=== PATIENT | female | born 1965 ===

== ENCOUNTER 2016-12-20 16:36 | Emergency (ER) | payer MEDICAID ==
[2016-12-20 16:43] VITALS: RESP 18; O2SAT 100
[2016-12-20] MEDS ORDERED: Aspirin 325 mg EC Tablets PO STA (17:48)
[2016-12-20] MEDS ORDERED: Sodium Chloride 0.9% 1,000 ML IV ONE (17:48)
[2016-12-20 18:17] LABS: BASO # 0.1 K/uL (0.0-0.2); BASO % 1.4 % (0.0-2.0); EOS # 0.2 K/uL (0.0-0.7); EOS % 3.1 % (0.0-4.0); HEMATOCRIT 41.4 % (34.0-47.0); LYMPH # 1.8 K/uL (1.0-4.3); LYMPH % 24.3 % (20.0-40.0); MEAN CELL VOLUME 82.6 fL (81.0-99.0); MEAN CORPUSCULAR HEMOGLOBIN 26.9 pg (27.0-31.0); MEAN CORPUSCULAR HGB CONC 32.6 g/dL (33.0-37.0); MEAN PLATELET VOLUME 10.5 fL (7.2-11.7); MONO # 0.6 K/uL (0.0-0.8); NRBC % 0.1 % (0.0-2.0); RED CELL DISTRIBUTION WIDTH 14.5 % (11.5-14.5)
[2016-12-20 18:20] LABS: WHITE BLOOD COUNT 7.5 K/uL (4.8-10.8)
[2016-12-20] MEDS ORDERED: Sodium Chloride 0.9% 1,000 ML ONE (18:28)
[2016-12-20] MEDS ORDERED: Aspirin 325 mg EC Tablets PO ONE (18:32)
[2016-12-20 18:35] LABS: RBC URINE 9 /hpf (0-3); URINE BILIRUBIN NEGATIVE (NEGATIVE); URINE BLOOD 1+ (NEGATIVE); URINE COLOR Yellow (YELLOW); URINE GLUCOSE (UA) NORMAL (Normal); URINE KETONE NEGATIVE (NEGATIVE); URINE LEUKOCYTE ESTERASE NEG Leu/uL (Negative); URINE PROTEIN NEGATIVE (NEGATIVE); URINE UROBILINOGEN NORMAL mg/dL (0.2-1.0); WBC URINE 1 /hpf (0-5)
[2016-12-20 18:52] LABS: CHLORIDE 100 mmol/L (98-107)
[2016-12-20 18:53] LABS: SODIUM 139 mmol/L (132-148)
[2016-12-20 18:55] LABS: AST/SGOT 22 U/L (14-36); BILIRUBIN,TOTAL 0.5 mg/dL (0.2-1.3); CARBON DIOXIDE 23 mmol/L (22-30); GFR AFRICAN-AMERICAN > 60
[2016-12-20 18:56] LABS: ALB/GLOB RATIO 1.3 (1.0-2.1); ALKALINE PHOSPHATASE 67 U/L (38-126); ALT/SGPT 7 U/L (9-52); BLOOD UREA NITROGEN 17 mg/dL (7-17); CALCIUM 9.2 mg/dl (8.6-10.4); GLUCOSE,RANDOM 76 mg/dL (65-105); TOTAL PROTEIN 7.7 g/dL (6.3-8.3)
--- NOTE | 2016-12-20 20:24 | C.PDOC ---
History Of Present Illness 51 year old female presents to the ED with complaints of cramping epigastric discomfort for the past 1 day. Patient has a history of constipation and was seen in April 2016 for the same complaints. Denies vomiting, diarrhea, fever, chills, or any other complaints at this time. Time Seen by Provider: 12/20/16 17:43 Chief Complaint (Nursing): Chest Pain History Per: Patient History/Exam Limitations: no limitations Onset/Duration Of Symptoms: Days Current Symptoms Are (Timing): Still Present Severity: Mild Location Of Pain/Discomfort: Epigastric Quality Of Discomfort: Cramping Associated Symptoms: denies: Fever, Chills, Vomiting, Diarrhea Past Medical History Reviewed: Historical Data, Nursing Documentation, Vital Signs Vital Signs: Last Vital Signs Temp 98.6 F 12/20/16 20:47 Pulse 68 12/20/16 20:47 Resp 18 12/20/16 20:47 BP 160/92 H 12/20/16 20:47 Pulse Ox 100 12/20/16 20:47 - Medical History PMH: Depression (sometimes), Gastritis, HTN, Hypercholesterolemia, Migraine Family History: States: Unknown Family Hx - Social History Hx Tobacco Use: No Hx Alcohol Use: No Hx Substance Use: No - Immunization History Hx Tetanus Toxoid Vaccination: Yes Hx Influenza Vaccination: No Hx Pneumococcal Vaccination: No Review Of Systems Except As Marked, All Systems Reviewed And Found Negative. Constitutional: Negative for: Fever, Chills Gastrointestinal: Positive for: Abdominal Pain. Negative for: Nausea, Vomiting , Diarrhea Physical Exam - Physical Exam Appears: Non-toxic, No Acute Distress Skin: Normal Color, Warm, Dry Head: Atraumatic, Normacephalic Eye(s): bilateral: Normal Inspection Oral Mucosa: Moist Chest: Symmetrical, No Deformity Cardiovascular: Rhythm Regular Respiratory: Normal Breath Sounds, No Accessory Muscle Use Gastrointestinal/Abdominal: Soft, No Tenderness, No Distention, No Guarding, No Rebound, Other (+Obese abdomen) Extremity: Normal ROM Neurological/Psych: Oriented x3, Normal Speech, Normal Cognition ED Course And Treatment - Laboratory Results Result Diagrams: 12/20/16 18:11 12/20/16 18:11 Lab Interpretation: Normal (trop neg.) Urine POC: Negative ECG: Interpreted By Me ECG Rhythm: Sinus Rhythm ECG Interpretation: Normal Rate From EC O2 Sat by Pulse Oximetry: 100 (Room air) Pulse Ox Interpretation: Normal - Radiology CXR: Interpreted by Me CXR Interpretation: Yes: No Acute Disease - Other Rad abd x 2 X-Ray: Interpreted by Me (+FOS) Progress Note: Obstructive series, EKG, Blood work, and Urinalysis ordered and reviewed. Patient treated with Aspirin, Toradol, and IV fluids. Medical Decision Making Medical Decision Making: recurrent constipation, no GB/cardiac issues today Again diet and exercise educated. Disposition Doctor Will See Patient In The: Office Counseled Patient/Family Regarding: Studies Performed, Diagnosis - Disposition Referrals: [facility] at [facility] [Outside] Disposition: HOME/ ROUTINE Disposition Time: 20:24 Condition: GOOD Additional Instructions: emily un purgante (Citrato de Magnesio) y re-evalua mckeon molestia del abdomen despues de usar el stef 2-3 veces Sigue un esuavesante de los heces diario Come mas verduras crudas Emily mas agua.l Sigue en la Clinica fiona necessario. Instructions: Constipation (ED) Print Language: BHUTANESE - Clinical Impression Clinical Impression: Colicky LUQ abdominal pain - Scribe Statement The provider has reviewed the documentation as recorded by the Scribe Kolby Mohr. Provider Attestation: All medical record entries made by the Scribe were at my direction and personally dictated by me. I have reviewed the chart and agree that the record accurately reflects my personal performance of the history, physical exam, medical decision making, and the department course for this patient. I have also personally directed, reviewed, and agree with the discharge instructions and disposition.
[2016-12-20 20:48] VITALS: BP 160/92; PULSE 68; TEMP 98.6
--- NOTE | 2016-12-21 10:57 | RAD ---
PROCEDURE: Radiographs of the chest and abdomen (obstructive series) HISTORY: epigastric pain COMPARISON: No prior. TECHNIQUE: AP radiograph of the chest, with upright and supine radiographs of the abdomen. FINDINGS: CHEST: Lungs: Prominent lung markings. No focal infiltrate or consolidation. Cardiovascular: Normal size heart. No pulmonary vascular congestion. Pleura: No pleural fluid. No pneumothorax. Other findings: None. ABDOMEN AND PELVIS: Bowel: [id number] constipation. Otherwise unremarkable bowel gas pattern. . No evidence of mechanical obstruction. Free air: None. Bones: Unremarkable. Other findings: None. IMPRESSION: [id number] constipation. No radiographic evidence of SBO. Slightly prominent lung markings. No evidence of subdiaphragmatic free air.
--- NOTE | 2016-12-21 16:54 | CARD ---
APPROVED REPORT EKG Measurement Heart [id number] [place] [id number] <Conclusion> Normal sinus rhythm Normal ECG
== END 2016-12-20 20:47 | disposition home or self-care (01) ==
LOC: C.ER 16:36
DX: R10.12 Left upper quadrant pain (principal)
CPT/HCPCS: 74022; 80053; 81001; 83880; 84484; 85025; 93005; 96361; 96374; 99285; J1885; J7040

== ENCOUNTER 2017-04-13 14:09 | Observation (INO) | payer MEDICAID ==
[2017-04-13] MEDS ORDERED: Aspirin 325 mg EC Tablets PO STA (14:49)
--- NOTE | 2017-04-13 14:52 | C.PDOC ---
History Of Present Illness 51 y/o female, with no significant past medical history, presents to emergency department via BLS with complaint of sudden onset mid-sternal chest discomfort, described as sharp, which eased up and then lingered, lasting about 2 hours. Patient states she began to feel short of breath and sweaty, causing concern, and prompting EMS call. Patient states she has never had similar symptoms in the past. She reports chest pain is now resolved, but now complains of headache. Denies family cardiac history or smoking. Otherwise, denies fever, chills, nausea, vomiting, or other associated symptoms. Time Seen by Provider: 04/13/17 14:22 Chief Complaint (Nursing): Chest Pain History Per: Patient History/Exam Limitations: no limitations Onset/Duration Of Symptoms: Hrs Current Symptoms Are (Timing): Gone Quality: "Pain" Associated Symptoms: Dyspnea, Diaphoresis Recent travel outside of the [place]: No Past Medical History Reviewed: Historical Data, Nursing Documentation, Vital Signs Vital Signs: Last Vital Signs Temp 98 F 04/13/17 14:12 Pulse 55 L 04/13/17 16:52 Resp 14 04/13/17 16:52 BP 148/67 04/13/17 16:52 Pulse Ox 100 04/13/17 16:52 - Medical History PMH: Depression (sometimes), Gastritis, HTN, Hypercholesterolemia, Migraine Family History: States: Unknown Family Hx - Social History Hx Tobacco Use: No Hx Alcohol Use: No Hx Substance Use: No - Immunization History Hx Tetanus Toxoid Vaccination: Yes Hx Influenza Vaccination: No Hx Pneumococcal Vaccination: No Review Of Systems Except As Marked, All Systems Reviewed And Found Negative. Constitutional: Positive for: Sweats. Negative for: Fever, Chills Cardiovascular: Positive for: Chest Pain. Negative for: Palpitations Respiratory: Positive for: Shortness of Breath. Negative for: Cough Gastrointestinal: Negative for: Nausea, Vomiting Skin: Negative for: Rash Neurological: Positive for: Headache. Negative for: Dizziness Physical Exam - Physical Exam Appears: Non-toxic, No Acute Distress Skin: Warm, Dry Head: Atraumatic, Normacephalic Oral Mucosa: Moist Chest: Symmetrical Cardiovascular: Rhythm Regular Respiratory: Normal Breath Sounds, No Rales, No Rhonchi, No Wheezing Gastrointestinal/Abdominal: Soft, No Tenderness, No Guarding, No Rebound Back: Normal Inspection Extremity: Normal ROM, Capillary Refill (< 2 sec. ) Neurological/Psych: Oriented x3, Normal Speech, Normal Cognition ED Course And Treatment - Laboratory Results Result Diagrams: 04/13/17 15:07 04/13/17 15:07 Lab Interpretation: No Acute Changes ECG: Interpreted By Me ECG Rhythm: Sinus Bradycardia, R BBB (incomplete) ECG Interpretation: No Acute Changes O2 Sat by Pulse Oximetry: 99 (RA) Pulse Ox Interpretation: Normal - Radiology CXR: Viewed By Me, Read By Radiologist CXR Interpretation: Yes: No Acute Disease Progress Note: EKG, CxR, bloodwork ordered. Reevaluation Time: 16:20 Reassessment Condition: Improved - Physician Consult Information Time Consulting Physician Contacted: 16:25 Physician Contacted: Diaz Vidales Outcome Of Conversation: Patient to be kept for cardiac observation. Disposition - Disposition Disposition: HOSPITALIZED Disposition Time: 16:26 Condition: STABLE - POA Present On Arrival: None - Clinical Impression Clinical Impression: Chest pain - Scribe Statement The provider has reviewed the documentation as recorded by the Teriibsilvestre Mahmood All medical record entries made by the Anita were at my direction and personally dictated by me. I have reviewed the chart and agree that the record accurately reflects my personal performance of the history, physical exam, medical decision making, and the department course for this patient. I have also personally directed, reviewed, and agree with the discharge instructions and disposition.
[2017-04-13 15:12] LABS: BASO # 0.1 K/uL (0.0-0.2); BASO % 1.1 % (0.0-2.0); EOS # 0.2 K/uL (0.0-0.7); EOS % 2.5 % (0.0-4.0); HEMATOCRIT 38.1 % (34.0-47.0); LYMPH # 1.7 K/uL (1.0-4.3); LYMPH % 27.1 % (20.0-40.0); MEAN CELL VOLUME 82.1 fL (81.0-99.0); MEAN CORPUSCULAR HEMOGLOBIN 26.2 pg (27.0-31.0); MEAN PLATELET VOLUME 10.6 fL (7.2-11.7); MONO # 0.5 K/uL (0.0-0.8); MONO % 7.2 % (0.0-10.0); NRBC % 0.1 % (0.0-2.0); RED CELL DISTRIBUTION WIDTH 13.3 % (11.5-14.5); WHITE BLOOD COUNT 6.3 K/uL (4.8-10.8)
[2017-04-13 15:21] LABS: CHLORIDE 101 mmol/L (98-107); POTASSIUM 4.2 mmol/L (3.6-5.2); SODIUM 139 mmol/L (132-148)
[2017-04-13 15:23] LABS: ALB/GLOB RATIO 1.1 (1.0-2.1); ALKALINE PHOSPHATASE 82 U/L (38-126); AST/SGOT 18 U/L (14-36); BILIRUBIN,TOTAL 0.7 mg/dL (0.2-1.3); CARBON DIOXIDE 26 mmol/L (22-30); GFR AFRICAN-AMERICAN > 60; TOTAL PROTEIN 6.8 g/dL (6.3-8.3)
[2017-04-13 15:24] LABS: ALT/SGPT 19 U/L (9-52); BLOOD UREA NITROGEN 11 mg/dL (7-17); CALCIUM 8.4 mg/dl (8.6-10.4); GLUCOSE,RANDOM 88 mg/dL (65-105)
--- NOTE | 2017-04-13 15:32 | RAD ---
HISTORY: chest pain COMPARISON: Obstructive series performed 12/20/16 TECHNIQUE: Chest, one view. FINDINGS: Examination limited by habitus. LUNGS: No focal consolidation. Please note that chest x-ray has limited sensitivity for the detection of pulmonary masses. PLEURA: No significant pleural effusion identified. No definite pneumothorax . CARDIOVASCULAR: Heart size appears within normal limits. Faint atherosclerotic calcifications of the aorta. OSSEOUS STRUCTURES: Degenerative changes of the spine. VISUALIZED UPPER ABDOMEN: Unremarkable. OTHER FINDINGS: None. IMPRESSION: No focal consolidation, significant pleural effusion, or definite pneumothorax identified.
--- NOTE | 2017-04-13 17:12 | CP.PCM.PN ---
Subjective - Date & Time of Evaluation Date of Evaluation: 04/13/17 Time of Evaluation: 16:45 - Subjective Subjective: PGY3 Medicine Note - Dr. Vidales's service: Patient seen and examined at bedside in ED. Patient is a 51 year old female with PMHx of hyperlipidemia, hypertension, migraines, gastritis and a stress ulcer. Patient denies having hypertension and hyperlipidemia but she has had it on prior ER visits. Patient is presenting for chest pain this morning. Patient says she was cooking and started feeling very hot around 11am. Then she got dizzy and began experiencing substernal, sudden, sharp chest pain. The pain did not radiate. It was associated with nausea, shortness of breath and diaphoresis. Patient says this is the first time she has ever had chest pain however she was admitted in 2014 for chest pain. Patient says the pain is gone now but it lasted for about 3 hours. Patient reports headache now associated with right neck pain. Patient has had headaches like this before. Patient says it started 3 hours ago. Patient also reports intermittent constipation. Patient denies fever, chills, cough, vomiting, diarrhea, dysuria. PMHx: as above: PSHx: C section Family Hx: patient says he brother suddenly at 11 years old from a heart problem Social Hx: quit smoking 3 years ago before which she smoked 5 cigarettes a day, denies ETOH, denies illicit drug use Allergies: NKDA Objective - Vital Signs/Intake and Output Vital Signs (last 24 hours): Temp Pulse Resp BP Pulse Ox 98 F 55 L 14 148/67 100 04/13/17 14:12 04/13/17 16:52 04/13/17 16:52 04/13/17 16:52 04/13/17 16:52 - Labs Labs: 04/13/17 15:07 04/13/17 15:07 - Constitutional Appears: Non-toxic, No Acute Distress - Head Exam Head Exam: NORMAL INSPECTION - Eye Exam Eye Exam: EOMI - ENT Exam ENT Exam: Mucous Membranes Moist - Respiratory Exam Respiratory Exam: Decreased Breath Sounds, Clear to Ausculation Bilateral, NORMAL BREATHING PATTERN. absent: Rales, Rhonchi, Wheezes - Cardiovascular Exam Cardiovascular Exam: REGULAR RHYTHM, +S1, +S2. absent: Gallop, Rubs, Murmur - GI/Abdominal Exam GI & Abdominal Exam: Soft, Normal Bowel Sounds. absent: Distended, Firm, Tenderness - Extremities Exam Extremities Exam: absent: Pedal Edema, Tenderness - Neurological Exam Neurological Exam: Alert, Awake, Oriented x3 - Psychiatric Exam Psychiatric exam: Normal Affect, Normal Mood - Skin Skin Exam: Normal Color, Warm Assessment and Plan - Assessment and Plan (Free Text) Assessment: Chest Pain KATINA negative x1 EKG - bradycardic at 52bpm with incomplete RBBB CXR - no consolidation, pleural effusion or definite pneumothorax (please see full report) F/U ROMIs with EKGs x2 at 21:30 and 4am F/U HgbA1C, TSH, Lipid panel ASA 81mg PO daily Crestor 10mg PO HS Nitro SL Q5M Headache Tylenol 650mg PO Q6H PRN headache HTN Started lisinopril 2.5mg PO daily Prophylaxis Protonix 40mg PO daily Lovenox 40mg SC daily All management per Dr. Vidales
[2017-04-13] MEDS: Pantoprazole 40 mg EC Tab PO SCH (18:30)
[2017-04-13] MEDS: Enoxaparin 40 mg Syringe SC SCH (18:30)
[2017-04-14 01:46] VITALS: RESP 20
[2017-04-14 04:42] LABS: BASO # 0.1 K/uL (0.0-0.2); BASO % 1.2 % (0.0-2.0); EOS # 0.2 K/uL (0.0-0.7); EOS % 3.6 % (0.0-4.0); HEMATOCRIT 39.4 % (34.0-47.0); LYMPH % 39.8 % (20.0-40.0); MEAN CELL VOLUME 82.6 fL (81.0-99.0); MEAN CORPUSCULAR HEMOGLOBIN 26.5 pg (27.0-31.0); MEAN CORPUSCULAR HGB CONC 32.1 g/dL (33.0-37.0); MEAN PLATELET VOLUME 10.6 fL (7.2-11.7); MONO # 0.4 K/uL (0.0-0.8); MONO % 7.3 % (0.0-10.0); NRBC % 0.1 % (0.0-2.0); RED CELL DISTRIBUTION WIDTH 13.4 % (11.5-14.5); WHITE BLOOD COUNT 5.1 K/uL (4.8-10.8)
[2017-04-14 04:48] LABS: CHLORIDE 102 mmol/L (98-107); POTASSIUM 3.8 mmol/L (3.6-5.2); SODIUM 138 mmol/L (132-148)
[2017-04-14 04:50] LABS: ALB/GLOB RATIO 1.1 (1.0-2.1); AST/SGOT 21 U/L (14-36); BILIRUBIN,TOTAL 0.8 mg/dL (0.2-1.3); CARBON DIOXIDE 25 mmol/L (22-30); CHOLESTEROL 187 mg/dL (0-199); GFR AFRICAN-AMERICAN > 60; TOTAL PROTEIN 6.3 g/dL (6.3-8.3)
[2017-04-14 04:51] LABS: ALKALINE PHOSPHATASE 72 U/L (38-126); ALT/SGPT 18 U/L (9-52); BLOOD UREA NITROGEN 12 mg/dL (7-17); CALCIUM 8.8 mg/dl (8.6-10.4); GLUCOSE,RANDOM 93 mg/dL (65-105)
[2017-04-14 05:22] LABS: THYROID STIMULATING HORMONE 2.69 mIU/L (0.46-4.68)
[2017-04-14] MEDS: Pantoprazole 40 mg EC Tab PO SCH (10:32)
[2017-04-14] MEDS: Enoxaparin 40 mg Syringe SC SCH (10:33)
--- NOTE | 2017-04-14 14:14 | CP.PCM.PN ---
Subjective - Date & Time of Evaluation Date of Evaluation: 04/14/17 Time of Evaluation: 08:00 - Subjective Subjective: Medicine Progress Note- Flash's service Patient seen and examined. Patient states that she feels much better today and that her chest pain has resolved. She wishes to go home today. Patient denies fever, chills, nausea, vomiting, diaphoresis, chest pain, shortness of breath, cough, leg swelling, dizziness and headache. Objective - Vital Signs/Intake and Output Vital Signs (last 24 hours): Temp Pulse Resp BP Pulse Ox 97.8 F 64 20 147/84 99 04/14/17 07:24 04/14/17 10:31 04/14/17 07:24 04/14/17 10:31 04/14/17 07:24 Intake and Output: 04/14/17 04/14/17 06:59 18:59 Intake Total 130 Balance 130 - Medications Medications: Current Medications Acetaminophen (Tylenol 325mg Tab) 650 mg PO Q6 PRN PRN Reason: Headache Last Admin: 04/13/17 21:45 Dose: 650 mg Aspirin (Ecotrin) 81 mg PO DAILY [facility] Last Admin: 04/14/17 10:33 Dose: 81 mg Enoxaparin Sodium (Lovenox) 40 mg SC DAILY [facility] Last Admin: 04/14/17 10:33 Dose: 40 mg Lisinopril (Zestril) 2.5 mg PO DAILY [facility] Last Admin: 04/14/17 10:33 Dose: 2.5 mg Nitroglycerin (Nitrostat Sl Tab) 0.4 mg SL Q5M PRN PRN Reason: chest pain Pantoprazole Sodium (Protonix Ec Tab) 40 mg PO DAILY [facility] Last Admin: 04/14/17 10:32 Dose: 40 mg Rosuvastatin Calcium (Crestor) 10 mg PO HS [facility] Last Admin: 04/13/17 21:46 Dose: 10 mg - Labs Labs: 04/14/17 04:36 04/14/17 04:36 - Constitutional Appears: Non-toxic, No Acute Distress - Head Exam Head Exam: ATRAUMATIC, NORMOCEPHALIC - Eye Exam Eye Exam: EOMI, Normal appearance Pupil Exam: NORMAL ACCOMODATION - ENT Exam ENT Exam: Mucous Membranes Moist, Normal Exam - Neck Exam Neck Exam: Full ROM, Normal Inspection - Respiratory Exam Respiratory Exam: Clear to Ausculation Bilateral, NORMAL BREATHING PATTERN. absent: Rales, Rhonchi, Wheezes, Respiratory Distress - Cardiovascular Exam Cardiovascular Exam: REGULAR RHYTHM, +S1, +S2. absent: Murmur - GI/Abdominal Exam GI & Abdominal Exam: Soft, Normal Bowel Sounds. absent: Firm, Guarding, Rigid, Tenderness - Extremities Exam Extremities Exam: Normal Inspection - Back Exam Back Exam: NORMAL INSPECTION - Neurological Exam Neurological Exam: Alert, Awake, CN II-XII Intact, Normal Gait, Oriented x3 - Psychiatric Exam Psychiatric exam: Normal Affect, Normal Mood - Skin Skin Exam: Dry, Intact, Normal Color, Warm Assessment and Plan - Assessment and Plan (Free Text) Assessment: Chest Pain KATINA negative x3 EKG - bradycardic at 52bpm with incomplete RBBB CXR - no consolidation, pleural effusion or definite pneumothorax (please see full report) No acute ST changes on EKG HgbA1C 5.1 TSH nml Lipid panel- Cholesterol 187, LDL 101, HDL 62, TG 86 ASA 81mg PO daily Crestor 10mg PO HS Nitro SL Q5M Chest pain non-cardiac in origin Headache Resolved Tylenol 650mg PO Q6H PRN headache HTN Started lisinopril 2.5mg PO daily Will discharge on lisinopril 5mg daily Prophylaxis Protonix 40mg PO daily Lovenox 40mg SC daily All management per Dr. Vidales
[2017-04-14 15:06] VITALS: BP 109/64; PULSE 67; TEMP 98.3; O2SAT 98
--- NOTE | 2017-04-16 02:32 | HP ---
HISTORY OF PRESENT ILLNESS: A 51-year-old female had chest pain and she came to the hospital for admission. PHYSICAL EXAMINATION: GENERAL: The patient is awake, alert and oriented VITAL SIGNS: Temperature 98, pulse 90. HEENT: Within normal limits. NECK: Supple. CHEST: Symmetrical. HEART: Regular. ABDOMEN: Soft. EXTREMITIES: No edema. IMPRESSION: She is advised supportive care. 04/13/2017. Diaz Vidales MD
--- NOTE | 2017-04-21 19:38 | CARD ---
APPROVED REPORT EKG Measurement Heart [id number] [place] 170P51 [id number] <Conclusion> Sinus bradycardia Incomplete right bundle branch block Borderline ECG
--- NOTE | 2017-04-21 19:38 | CARD ---
APPROVED REPORT EKG Measurement Heart [id number] [place] 160P57 [id number] <Conclusion> Sinus bradycardia Incomplete right bundle branch block Borderline ECG
--- NOTE | 2017-04-24 09:22 | CARD ---
APPROVED REPORT EKG Measurement Heart [id number] [place] 152P60 [id number] <Conclusion> Sinus bradycardia Incomplete right bundle branch block Borderline ECG
--- NOTE | 2017-04-24 13:16 | CARD ---
APPROVED REPORT EKG Measurement Heart [id number] [place] 154P68 [id number] <Conclusion> Sinus bradycardia Low voltage QRS Incomplete right bundle branch block Borderline ECG
== END 2017-04-14 15:30 | disposition home or self-care (01) ==
LOC: C.ER 14:09 → C.9E 16:58 → C.6T 20:17
PROVIDERS: ADMIT Internal Medicine Pulmonary Disease; ATTEND Internal Medicine Pulmonary Disease
DX: R07.9 Chest pain, unspecified (principal); E78.5 Hyperlipidemia, unspecified; I10 Essential (primary) hypertension; I45.10 Unspecified right bundle-branch block; K59.00 Constipation, unspecified; Z87.891 Personal history of nicotine dependence
CPT/HCPCS: 36415; 71010; 80053; 80061; 83036; 84443; 84484; 85025; 96372; 99285; G0378; J1650

== ENCOUNTER 2018-07-14 23:20 | Emergency (ER) | payer MEDICAID, OTHER ==
--- NOTE | 2018-07-14 23:41 | C.PDOC ---
History Of Present Illness 53 year old female presents to the emergency department with complaints of chest discomfort since 9PM tonight. Patient complains of left arm pain, but denies fever, chills, nausea, vomiting, slurred speech, and visual changes. Time Seen by Provider: 07/14/18 23:41 Chief Complaint (Nursing): Chest Pain History Per: Patient History/Exam Limitations: no limitations Onset/Duration Of Symptoms: Hrs Current Symptoms Are (Timing): Still Present Quality: "Pain" Past Medical History Reviewed: Historical Data, Nursing Documentation, Vital Signs Vital Signs: Last Vital Signs Temp 98.9 F 07/14/18 23:29 Pulse 78 07/14/18 23:29 Resp 18 07/14/18 23:29 BP 134/57 L 07/14/18 23:29 Pulse Ox 99 07/14/18 23:29 - Medical History PMH: Depression (sometimes), Gastritis, HTN, Hypercholesterolemia, Migraine Denies: Diabetes, Hepatitis, HIV, Chronic Kidney Disease, Seizures, Sexually Transmitted Disease Surgical History: Family History: States: No Known Family Hx - Social History Hx Tobacco Use: No Hx Alcohol Use: Yes (social) Hx Substance Use: No - Immunization History Hx Tetanus Toxoid Vaccination: Yes Hx Influenza Vaccination: No Hx Pneumococcal Vaccination: No Review Of Systems Constitutional: Negative for: Fever, Chills Eyes: Negative for: Vision Change Cardiovascular: Positive for: Chest Pain Gastrointestinal: Negative for: Nausea, Vomiting Musculoskeletal: Positive for: Arm Pain (left) Neurological: Negative for: Change in Speech Physical Exam - Physical Exam Appears: Non-toxic, No Acute Distress Skin: Warm, Dry Head: Normacephalic Eye(s): bilateral: Normal Inspection, PERRL, EOMI Oral Mucosa: Moist Neck: Trachea Midline, Supple Chest: Symmetrical, No Tenderness Cardiovascular: Rhythm Regular, No Murmur Respiratory: No Rales, No Rhonchi, No Wheezing Gastrointestinal/Abdominal: Soft, No Tenderness, No Guarding, No Rebound Extremity: Normal ROM (all extremities) Neurological/Psych: Oriented x3 ED Course And Treatment - Laboratory Results Result Diagrams: 07/15/18 00:17 07/15/18 00:17 ECG: Interpreted By Me, Viewed By Me ECG Rhythm: Sinus Rhythm, Nonspecific Changes O2 Sat by Pulse Oximetry: 99 (RA) Pulse Ox Interpretation: Normal - Radiology CXR: Interpreted by Me, Viewed By Me CXR Interpretation: No: Infiltrates, Fracture, Pnemothorax Progress Note: Plan: EKG. Chemistry. Bloodwork. CXR. Aspirin 325mg PO. HCG Qualitative Urine. Urinalysis Reevaluation Time: 01:12 Reassessment Condition: Improved Disposition Counseled Patient/Family Regarding: Studies Performed, Diagnosis, Need For Followup - Disposition Referrals: Anna Rubio MD [Primary Care Provider] - Disposition: HOME/ ROUTINE Disposition Time: 23:41 Condition: FAIR Additional Instructions: Please return if symptoms recur Prescriptions: Nitrofurantoin Macrocrystals [Macrobid] 1 cap PO BID #14 cap Instructions: Chest Pain (DC), Urinary Tract Infection, Adult (DC) Forms: [employer] (Sudanese) Print Language: MALTESE - Clinical Impression Clinical Impression: Chest discomfort, UTI (urinary tract infection) - Scribe Statement The provider has reviewed the documentation as recorded by the Scribe (Martin Smith) Provider Attestation: All medical record entries made by the Scribe were at my direction and personally dictated by me. I have reviewed the chart and agree that the record accurately reflects my personal performance of the history, physical exam, medical decision making, and the department course for this patient. I have also personally directed, reviewed, and agree with the discharge instructions and disposition.
[2018-07-14] MEDS ORDERED: Aspirin 325 mg EC Tablets PO STA (23:57)
[2018-07-15] MEDS ORDERED: Aspirin 325 mg EC Tablets PO ONE (00:18)
[2018-07-15 00:29] LABS: BASO # 0.1 K/uL (0.0-0.2); BASO % 1.3 % (0.0-2.0); EOS # 0.2 K/uL (0.0-0.7); EOS % 2.6 % (0.0-4.0); HEMOGLOBIN 12.1 g/dL (11.0-16.0); LYMPH # 1.7 K/uL (1.0-4.3); LYMPH % 22.9 % (20.0-40.0); MEAN CELL VOLUME 80.6 fL (81.0-99.0); MEAN CORPUSCULAR HEMOGLOBIN 26.5 pg (27.0-31.0); MEAN CORPUSCULAR HGB CONC 32.9 g/dL (33.0-37.0); MEAN PLATELET VOLUME 10.6 fL (7.2-11.7); MONO # 0.6 K/uL (0.0-0.8); MONO % 7.9 % (0.0-10.0); NEUT # 4.9 K/uL (1.8-7.0); NEUT % 65.3 % (50.0-75.0); RBC 4.56 Mil/uL (3.80-5.20); RED CELL DISTRIBUTION WIDTH 13.9 % (11.5-14.5); WHITE BLOOD COUNT 7.5 K/uL (4.8-10.8)
[2018-07-15 00:33] LABS: INR 1.1; PROTHROMBIN TIME 12.1 SECONDS (9.7-12.2)
[2018-07-15 00:35] LABS: HCG,QUALITATIVE URINE NEGATIVE (NEGATIVE)
[2018-07-15 00:37] LABS: SQUAMOUS EPITHIAL 5 /hpf (0-5); URINE BACTERIA RARE (<OCC); URINE BILIRUBIN 1+ (NEGATIVE); URINE BLOOD NEGATIVE (NEGATIVE); URINE CLARITY Hazy (Clear); URINE COLOR Yellow (YELLOW); URINE GLUCOSE (UA) NORMAL (Normal); URINE LEUKOCYTE ESTERASE 2+ Leu/uL (Negative); URINE PROTEIN 1+ mg/dL (NEGATIVE)
[2018-07-15 00:40] LABS: ALB/GLOB RATIO 1.3 (1.0-2.1); ALT/SGPT 19 U/L (9-52); AST/SGOT 19 U/L (14-36); BLOOD UREA NITROGEN 12 mg/dL (7-17); CALCIUM 9.5 mg/dl (8.6-10.4); GFR NON-AFRICAN AMERICAN 52; LIPASE 166 U/L (23-300)
[2018-07-15 00:49] LABS: B-TYPE NATRIURETIC PEPTIDE 15.5 pg/mL (0-900)
[2018-07-15 01:29] VITALS: BP 118/55; PULSE 75; RESP 14; TEMP 98.6; O2SAT 98
--- NOTE | 2018-07-15 10:24 | RAD ---
Date of service: 07/15/2018 PROCEDURE: CHEST RADIOGRAPH, 1 VIEW HISTORY: chest pain COMPARISON: Chest radiograph 04/13/2017. FINDINGS: LUNGS: No interval pulmonary disease appreciated bilaterally. PLEURA: No pneumothorax or pleural fluid seen. CARDIOVASCULAR: Normal. OSSEOUS STRUCTURES: No significant abnormalities. VISUALIZED UPPER ABDOMEN: Normal. OTHER FINDINGS: None. IMPRESSION: No interval acute cardiopulmonary disease appreciated.
--- NOTE | 2018-07-16 12:48 | CARD ---
APPROVED REPORT Date of service: 07/14/2018 EKG Measurement Heart [id number] [place] 146P69 [id number] <Conclusion> Normal sinus rhythm Normal ECG
== END 2018-07-15 01:30 | disposition home or self-care (01) ==
LOC: SUPCPDRO 23:20 → C.ER 23:20
DX: R07.89 Other chest pain (principal); N39.0 Urinary tract infection, site not specified

== ENCOUNTER 2018-08-24 16:07 | Emergency (ER) | payer OTHER ==
[2018-08-24 16:15] VITALS: BP 138/84; PULSE 75; RESP 16; TEMP 98.4; O2SAT 100
--- NOTE | 2018-08-24 17:05 | C.PDOC ---
History Of Present Illness 53 year old female presents to the ED for evaluation of right-sided upper back pain which began around 4-5 days ago. Patient denies trauma/injury to the area, recent falls, or extremity numbness/weakness. Time Seen by Provider: 08/24/18 16:26 Chief Complaint (Nursing): Upper Extremity Problem/Injury History Per: Patient History/Exam Limitations: no limitations Onset/Duration Of Symptoms: Days (4-5) Current Symptoms Are (Timing): Still Present Additional History Per: Patient Past Medical History Reviewed: Historical Data, Nursing Documentation, Vital Signs Vital Signs: Last Vital Signs Temp 98.4 F 08/24/18 16:13 Pulse 75 08/24/18 16:13 Resp 16 08/24/18 16:13 BP 138/84 08/24/18 16:13 Pulse Ox 100 08/24/18 16:13 - Medical History PMH: Depression (sometimes), Gastritis, HTN, Hypercholesterolemia, Migraine Denies: Diabetes, Hepatitis, HIV, Chronic Kidney Disease, Seizures, Sexually Transmitted Disease Surgical History: Family History: States: Unknown Family Hx - Social History Hx Tobacco Use: No Hx Alcohol Use: Yes (social) Hx Substance Use: No - Immunization History Hx Tetanus Toxoid Vaccination: Yes Hx Influenza Vaccination: No Hx Pneumococcal Vaccination: No Review Of Systems Musculoskeletal: Positive for: Back Pain (right-sided, upper ) Neurological: Negative for: Weakness, Numbness Physical Exam - Physical Exam Appears: Non-toxic, No Acute Distress Skin: Normal Color, Warm, Dry Neck: Normal ROM, Supple Chest: Symmetrical, No Deformity Back: Muscle Spasm, Other (right-sided trapezius tenderness) Extremity: Normal ROM Neurological/Psych: Oriented x3, Normal Speech, Normal Cognition Gait: Steady ED Course And Treatment O2 Sat by Pulse Oximetry: 100 (on RA) Pulse Ox Interpretation: Normal Medical Decision Making Medical Decision Making: Impression: 53 year old female with right upper back pain Plan: * Toradol IM * reassess and disposition Progress: Toradol IM given. On reassessment, patient is resting comfortably, showing no signs of distress and reports an improvement in her back pain. Patient is ambulatory in the ED with a steady gait and is stable for discharge. She is advised to follow up with her PMD within 1-2 days for further evaluation. Advised to return to the ED if symptoms persist or worsen. Disposition Counseled Patient/Family Regarding: Diagnosis, Need For Followup, Rx Given - Disposition Referrals: Anna Rubio MD [Medical Doctor] - Disposition: HOME/ ROUTINE Disposition Time: 17:05 Condition: GOOD Prescriptions: Cyclobenzaprine [Cyclobenzaprine HCl] 10 mg PO TID #30 tab Ibuprofen [Motrin] 600 mg PO Q8 #30 tab Instructions: Muscle Spasms (DC) Print Language: MALAY - POA Present On Arrival: None - Clinical Impression Clinical Impression: Trapezius muscle spasm - PA / CONSTRUCTION INSPECTOR / Resident Statement MD/DO has reviewed & agrees with the documentation as recorded. - Scribe Statement The provider has reviewed the documentation as recorded by the Scribe (Deandra Jackson) All medical record entries made by the Scribe were at my direction and personally dictated by me. I have reviewed the chart and agree that the record accurately reflects my personal performance of the history, physical exam, medical decision making, and the department course for this patient. I have also personally directed, reviewed, and agree with the discharge instructions and disposition.
== END 2018-08-24 17:16 | disposition home or self-care (01) ==
LOC: C.ER 16:07
DX: M62.838 Other muscle spasm (principal)
CPT/HCPCS: 96372; 99283; J1885

== ENCOUNTER 2018-10-24 11:32 | Emergency (ER) | payer OTHER ==
[2018-10-24 12:08] VITALS: RESP 18
--- NOTE | 2018-10-24 12:45 | C.PDOC ---
History Of Present Illness 53 y/o female presents to the ED complaining of mid-sternal chest pain for 1 day. No associated cough or SOB. Patient denies prior cardiac history or any known medical problems. Otherwise she denies any fevers, chills, cold sweats, b ack pain, nausea, vomiting, or calf pain/swelling. Time Seen by Provider: 10/24/18 12:24 Chief Complaint (Nursing): Chest Pain History Per: Patient History/Exam Limitations: no limitations Onset/Duration Of Symptoms: Days (x 1) Current Symptoms Are (Timing): Still Present Quality: Aching Exacerbating Factors: Movement Past Medical History Reviewed: Historical Data, Nursing Documentation, Vital Signs Vital Signs: Last Vital Signs Temp 98.2 F 10/24/18 12:06 Pulse 71 10/24/18 12:06 Resp 18 10/24/18 12:06 BP 112/80 10/24/18 12:06 Pulse Ox 98 10/24/18 12:06 - Medical History PMH: Depression (sometimes), Gastritis, HTN, Hypercholesterolemia, Migraine Surgical History: Family History: States: Unknown Family Hx - Social History Hx Tobacco Use: No Hx Alcohol Use: Yes (social) Hx Substance Use: No - Immunization History Hx Tetanus Toxoid Vaccination: Yes Hx Influenza Vaccination: No Hx Pneumococcal Vaccination: No Review Of Systems Cardiovascular: Positive for: Chest Pain. Negative for: Palpitations Respiratory: Positive for: Cough. Negative for: Shortness of Breath Gastrointestinal: Negative for: Nausea, Vomiting Musculoskeletal: Negative for: Back Pain Physical Exam - Physical Exam Appears: Non-toxic, No Acute Distress Skin: Warm, Dry Head: Atraumatic, Normacephalic Eye(s): bilateral: Normal Inspection, PERRL, EOMI Oral Mucosa: Moist Neck: Normal ROM Chest: Symmetrical, Tenderness (reproducible anterior chest wall tenderness) Cardiovascular: Rhythm Regular, No Murmur Respiratory: Normal Breath Sounds, No Rales, No Rhonchi, No Wheezing Gastrointestinal/Abdominal: Soft, No Tenderness, No Distention Extremity: Normal ROM Extremity: Bilateral: Atraumatic, No Pedal Edema, Normal ROM Pulses: Left Dorsalis Pedis: Normal, Right Dorsalis Pedis: Normal Neurological/Psych: Oriented x3 Gait: Steady ED Course And Treatment - Laboratory Results Result Diagrams: 10/24/18 13:51 10/24/18 13:51 Lab Interpretation: Normal ECG: Interpreted By Wi ECG Rhythm: Sinus Rhythm, R BBB ECG Interpretation: No Acute Changes, No Changes From Prior Rate From EC O2 Sat by Pulse Oximetry: 98 (RA) Pulse Ox Interpretation: Normal - Radiology CXR: Interpreted by Wi CXR Interpretation: Yes: No Acute Disease - Other Rad CXR X-Ray: Read By Radiologist Interpretation: Accession No. : [id number]. Patient Name / ID : HERRERA RUTH / [id number]. Exam Date : 10/24/2018 12:46:22 ( Approved ). Study Comment : Sex / Age : F / 53Y. Creator : Corina Jules MD. Dictator : Corina Jules MD. Vice President For Philanthropy : Connection Worker : Corina Jules MD. Approver2 : Report Date : 10/24/2018 13:06:59. My Comment : . HISTORY: SOB. COMPARISON: Chest x-ray performed 07/15/18. TECHNIQUE: Chest PA and lateral. FINDINGS: Examination limited by habitus. LUNGS: No focal consolidation. Please note that chest x-ray has limited sensitivity for the detection of pulmonary masses. PLEURA: No significant pleural effusion identified. No definite pneumothorax . CARDIOVASCULAR: Mild cardiomegaly. Ectatic aorta. Atherosclerotic calcifications. OSSEOUS STRUCTURES: Degenerative changes. VISUALIZED UPPER ABDOMEN: Unremarkable. OTHER FINDINGS: None. IMPRESSION: No focal cons olidation. Mild cardiomegaly. Progress Note: Treated with toradol IV. On re-evaluation lungs clear in no distress, No chest pain requesting to be discharge Reassessment Condition: Improved Medical Decision Making Medical Decision Making: Plan: Cardiac work-up Ordered labs with cardiac enzymes, EKG, and CXR. Patient given 30 mg IV Toradol for pain Disposition Counseled Patient/Family Regarding: Studies Performed, Diagnosis, Need For Followup, Rx Given - Disposition Disposition: HOME/ ROUTINE Disposition Time: 14:50 Condition: CRITICAL Additional Instructions: Follow up with your PMD for further evaluation REeturn to ED if any increase symptoms Prescriptions: Naproxen [Naprosyn] 1 tab PO BID PRN #25 tab PRN Reason: Pain Instructions: Costochondritis Forms: [facility] (Amharic) - POA Present On Arrival: None - Clinical Impression Clinical Impression: Chest pain, Chest wall pain - PA / UX MANAGER / Resident Statement MD/DO has reviewed & agrees with the documentation as recorded. - Scribe Statement The provider has reviewed the documentation as recorded by the Scribsilvestre James All medical record entries made by the Anita were at my direction and personally dictated by me. I have reviewed the chart and agree that the record accurately reflects my personal performance of the history, physical exam, medical decision making, and the department course for this patient. I have also personally directed, reviewed, and agree with the discharge instructions and disposition.
--- NOTE | 2018-10-24 13:10 | RAD ---
HISTORY: SOB COMPARISON: Chest x-ray performed 07/15/18. TECHNIQUE: Chest PA and lateral FINDINGS: Examination limited by habitus. LUNGS: No focal consolidation. Please note that chest x-ray has limited sensitivity for the detection of pulmonary masses. PLEURA: No significant pleural effusion identified. No definite pneumothorax . CARDIOVASCULAR: Mild cardiomegaly. Ectatic aorta. Atherosclerotic calcifications. OSSEOUS STRUCTURES: Degenerative changes. VISUALIZED UPPER ABDOMEN: Unremarkable. OTHER FINDINGS: None. IMPRESSION: No focal consolidation. Mild cardiomegaly.
[2018-10-24 13:20] LABS: SQUAMOUS EPITHIAL 2 /hpf (0-5); URINE BACTERIA RARE (<OCC)
[2018-10-24 13:21] LABS: URINE BILIRUBIN NEGATIVE (NEGATIVE); URINE BLOOD 1+ (NEGATIVE); URINE CLARITY Clear (Clear); URINE COLOR Yellow (YELLOW); URINE GLUCOSE (UA) NORMAL (Normal); URINE LEUKOCYTE ESTERASE NEG Leu/uL (Negative); URINE PROTEIN NEGATIVE (NEGATIVE); URINE UROBILINOGEN NORMAL mg/dL (0.2-1.0)
[2018-10-24 14:02] LABS: BASO # 0.1 K/uL (0.0-0.2); BASO % 1.1 % (0.0-2.0); EOS # 0.1 K/uL (0.0-0.7); EOS % 1.4 % (0.0-4.0); HEMOGLOBIN 12.7 g/dL (11.0-16.0); LYMPH # 1.6 K/uL (1.0-4.3); LYMPH % 23.3 % (20.0-40.0); MEAN CELL VOLUME 81.6 fL (81.0-99.0); MEAN CORPUSCULAR HGB CONC 31.8 g/dL (33.0-37.0); MEAN PLATELET VOLUME 10.5 fL (7.2-11.7); MONO # 0.5 K/uL (0.0-0.8); MONO % 7.6 % (0.0-10.0); NEUT # 4.6 K/uL (1.8-7.0); NEUT % 66.6 % (50.0-75.0); NRBC % 0.1 % (0.0-2.0); RBC 4.9 Mil/uL (3.80-5.20)
[2018-10-24 14:09] LABS: ALB/GLOB RATIO 1.3 (1.0-2.1); ALBUMIN 4.2 g/dL (3.5-5.0); ALT/SGPT 12 U/L (9-52); AST/SGOT 34 U/L (14-36); BLOOD UREA NITROGEN 14 mg/dL (7-17); CALCIUM 9.6 mg/dl (8.6-10.4); GFR NON-AFRICAN AMERICAN > 60; LIPASE 202 U/L (23-300)
[2018-10-24 15:15] VITALS: BP 113/36; PULSE 62; TEMP 98.4
[2018-10-24 17:35] VITALS: O2SAT 98
--- NOTE | 2018-10-25 12:29 | CARD ---
APPROVED REPORT Date of service: 10/24/2018 EKG Measurement Heart [id number] <Conclusion> Normal sinus rhythm Possible Left atrial enlargement Incomplete right bundle branch block Borderline ECG
== END 2018-10-24 15:15 | disposition home or self-care (01) ==
LOC: C.ER 11:32
DX: R07.89 Other chest pain (principal); I10 Essential (primary) hypertension; E78.00 Pure hypercholesterolemia, unspecified
CPT/HCPCS: 71046; 80053; 81001; 82553; 83690; 84484; 84703; 85025; 93005; 96374; 99285; J1885